=== PATIENT | female | born 1990 | race Caucasian/White ===

== ENCOUNTER 2025-04-05 09:54 | Emergency (ER) | payer OTHER ==
[~2025-04-05] VITALS: Ht 170.2 cm; Wt 83.6 kg
--- NOTE | 2025-04-05 10:05 | Physician Documentation ---
History of Present Illness ~ Chief Complaint: Flank Pain Stated Complaint: BACK/ABD PAIN Time Seen by MD: 10:05 HPI 34-year-old female who presents to the emergency department for sudden onset left flank pain radiating into the abdomen. She endorses nausea, denies chills or fever. Notes a history of kidney stones in the past. Denies chance of as she has had a tubal ligation. No recent CT scans has been done. Medication Reconciliation Allergies: Uncoded Allergies: Z-PACK (Allergy, Unknown, 04/05/25) Scheduled Tamsulosin Hcl* (Flomax*), 1 CAP PO qhs Scheduled PRN Hydrocodone Bit/Acetaminophen (Hydrocodon-Acetaminophn 10-325 tablet), 1 TAB PO QID PRN PRN for pain Ondansetron 8mg ODT (Ondansetron Odt), 1 TAB PO TID PRN for nausea/vomiting Review of Systems ROS As stated above in the HPI, otherwise all systems are reviewed and negative. Physical Exam Vital Signs: Temperature: 97.8, Source: Temporal, Heart Rate: 60, Respiratory Rate: 22, BP: 154/115, Pulse Oximetry: 100, Weight: 83.600 Oxygen Flow Rate: 0 Physical Exam General: Alert, acutely distressed in obvious pain upon presentation. Neck: Full range of motion. Respiratory: Lungs clear, no respiratory distress. Chest: No accessory muscle use. Cardiovascular: Regular rate and rhythm, no murmurs. Gastrointestinal: Soft, mildly TTP left abd, nondistended. Bowels sounds present. Extremities: Normal range of motion, no deformity. Neurologic: Oriented x4. Psychiatric: Normal mood and affect. Skin: Normal color, warm and dry. No edema, no ecchymosis. Progress Results/Orders Results/Orders Orders - LC MASSEY RACEHORSE TRAINER Ct Abdomen Pelvis (04/05/25 10:02) Saline Lock (04/05/25 10:03) Completed Orders - LC MASSEY RACEH[employer]SE TRAINER Ct Abdomen Pelvis (04/05/25 10:02) Ketorolac Trometh 30mg/Ml Vial (Toradol (04/05/25 10:05) Morphine 4mg/Ml Inj. (Morphine Inj.) (04/05/25 10:05) Normal Saline 1000ml (0.9% Sodium Chlori (04/05/25 10:05) Ondansetron Inj. (Zofran 4mg/2ml Vial) (04/05/25 10:10) Ondansetron Inj. (Zofran 4mg/2ml Vial) (04/05/25 11:10) Ondansetron Inj. (Zofran 4mg/2ml Vial) (04/05/25 13:05) Normal Saline 1000ml (0.9% Sodium Chlori (04/05/25 13:05) Morphine 4mg/Ml Inj. (Morphine Inj.) (04/05/25 13:55) Medications Received in ER Medications (Trade) Dose Ordered Sig/Elisha Route PRN Reason Start Time Stop Time Status Last Admin Dose Admin (Toradol inj. 30mg/ml) 30 mg ONCE ONCE IV 04/05/25 10:05 04/05/25 10:06 DC 04/05/25 10:38 30 MG (morphine inj.) 4 mg ONCE ONCE IV 04/05/25 10:05 04/05/25 10:06 DC 04/05/25 10:38 4 MG (0.9% sodium chloride (NS) 1000ml IV soln) 1,000 ml ONCE ONCE IVB 04/05/25 10:05 04/05/25 10:06 DC 04/05/25 10:43 1,000 ML (Zofran 4mg/2ml vial) 4 mg ONCE ONCE IV 04/05/25 10:10 04/05/25 10:11 DC 04/05/25 10:44 4 MG (Zofran 4mg/2ml vial) 4 mg ONCE ONCE IV 04/05/25 11:10 04/05/25 11:11 DC 04/05/25 11:15 4 MG (Zofran 4mg/2ml vial) 4 mg ONCE ONCE IV 04/05/25 13:05 04/05/25 13:06 DC 04/05/25 13:09 4 MG Sodium Chloride 1,000 ml @ 1,000 mls/hr ONCE ONCE IV 04/05/25 13:05 04/05/25 14:04 DC 04/05/25 13:09 1,000 MLS/HR (morphine inj.) 4 mg ONCE ONCE IV 04/05/25 13:55 04/05/25 13:56 DC 04/05/25 13:57 4 MG Vital Signs 04/05/25 04/05/25 04/05/25 04/05/25 09:58 10:34 10:38 10:38 Temp 97.8 Pulse 60 Resp 22 16 16 16 B/P (MAP) 154/115 Pulse Ox 100 O2 Flow Rate 0 04/05/25 04/05/25 04/05/25 11:17 12:18 13:57 Temp 97.8 97.8 Pulse 56 58 Resp 16 14 14 B/P (MAP) 140/81 (100) 129/79 (96) Pulse Ox 98 98 O2 Flow Rate 0 0 Laboratory Tests Test 04/05/25 10:32 04/05/25 10:53 White Blood Count 11.6 H Red Blood Count 4.98 Hemoglobin 14.1 Hematocrit 42.3 Mean Corpuscular Volume 84.8 Mean Corpuscular Hemoglobin 28.3 Mean Corpuscular Hemoglobin Concent 33.3 Red Cell Distribution Width 13.5 Platelet Count 268 Mean Platelet Volume 7.5 Neutrophils (%) (Auto) 87.0 H Lymphocytes (%) (Auto) 9.4 L Monocytes (%) (Auto) 3.3 Eosinophils (%) (Auto) 0 Basophils (%) (Auto) 0.3 Neutrophils # (Auto) 10.1 H Lymphocytes # (Auto) 1.1 Monocytes # (Auto) 0.4 Eosinophils # (Auto) 0.0 Basophils # (Auto) 0.0 CBC Comment Sodium Level 136 Potassium Level 4.8 Chloride Level 103 Carbon Dioxide Level 25.2 Anion Gap 8 Blood Urea Nitrogen 17 Creatinine 1.24 H Estimated GFR/1.73 m2 49 BUN/Creatinine Ratio 13.7 Glucose Level 134 H Calcium Level 9.3 Total Bilirubin 0.5 Aspartate Amino Transf (AST/SGOT) 14 Alanine Aminotransferase (ALT/SGPT) 26 Alkaline Phosphatase 65 Total Protein 8.1 Albumin 4.2 Globulin 3.9 Albumin/Globulin Ratio 1.1 Lipase 37 Chemistry Comments Urine Specimen Description Cln catch midstream Urine Color Yellow Urine Clarity Clear Urine pH 8.5 Urine Specific [place] 1.020 Urine Protein Trace Urine Glucose (UA) Negative Urine Ketones 40 H Urine Occult Blood Negative Urine Nitrite Negative Urine Bilirubin Negative Urine Urobilinogen 0.2 Urine Leukocyte Esterase Negative Urine RBC 0-2 Urine WBC 0-4 Urine Squamous Epithelial Cells Few Urine Bacteria 1+ Urine Mucus None seen Urine Culture Indicated Not ind Volume Urine Centrifuged 10 ml Urine HCG, Qualitative Negative Urine Comment EKG/XRAY/CT/US/VASC/MRI CT : Impression [facility] [address], [place], [facility] [id number] CAT SCAN Patient: REED CONN Medical Record: [id number] [facility] : 1990, Age: 34 Sex: Female Location: ER Patient Status: REG ER Service Date/Time: 04/05/251001 Ordering Physician: LC MASSEY [employer] TRAINER Exam: CT ABDOMEN PELVIS CT CT ABDOMEN PELVIS INDICATION: left flank pain EXAM DATE: 04/05/2025 12:06 PM COMPARISON: None RADIATION DOSE: CTDIvol: 22 mGy, DLP: 1166 mGy*cm PROCEDURE: Helical CT images were obtained of the abdomen and pelvis without IV contrast Sagittal and coronal reconstructions are provided. ORAL CONTRAST: None. ADDITIONAL IMAGES / REFORMATS: None All CT scans at this medical facility are performed using dose modulation techniques as appropriate to a performed exam including the following: Automated exposure control was utilized; adjustment of the MA and/or KV according to patient size; and use of iterative reconstruction technique. FINDINGS: LUNG BASE: Normal. LIVER: Normal. GALLBLADDER AND BILIARY TREE: No calcified gallstones. Normal caliber wall. No intra- or extrahepatic biliary ductal dilation. PANCREAS: Normal. SPLEEN: Normal. BOWEL: Moderate colonic diverticulosis. Normal appendix. ADRENALS: Normal. KIDNEYS AND URETER: 2 mm distal left ureter kidney stone with mild left hydronephrosis and perinephric fat stranding. Additional nonobstructive right kidney stone is seen. BLADDER: Normal. REPRODUCTIVE ORGANS: Normal. LYMPH NODES:No lymphadenopathy. PERITONEUM: No ascites or free air. No other fluid collection. VESSELS: Normal. RETROPERITONEUM: Normal. ABDOMINAL WALL: Normal. BONES: Normal. IMPRESSION: 2 mm distal left ureter kidney stone with mild left hydronephrosis and perinephric fat stranding. Additional nonobstructive right kidney stone is seen. Electronically Signed by:CHINMAY LARA MD Date & Time: 04/05/25 1421 Dictated by: CHINMAY LARA MD Dictation date and time: 04/05/25 1200 Primary Care Provider: NO PRIMARY CARE PROVIDER cc: LC MASSEY [employer] TRAINER ~ Medical Decision Making Additional Comment This is a 34-year-old female with a remote history of kidney stones approximately 10 years ago. She presented to the emergency department today due to sudden onset left flank pain with radiation to the left abdomen. She was found to have a 2 mm left distal ureteral stone on CT scan. There was evidence of stranding, but no signs of infection to include fever or significant leukocytosis. Urinalysis with no signs of infection, but was but positive for ketones. Labs otherwise remarkable for evidence of presumed OSWALD and this 34-year-old female who denies history of chronic kidney disease. She was hy drated with 2 L of normal saline. She was medicated for nausea and pain to good effect. She will go home with hydrocodone, Flomax, ondansetron. She is to follow up with her primary care provider soon, return if worse. The patient and her mother, who accompanies her, were comfortable with this plan. Plan of care discussed with NIKUNJ Rome who affirmed the plan. Departure Time of Disposition: 14:57 Disposition: 01 HOME / SELF CARE / HOMELESS Impression: Primary Impression: Ureteral stone with hydronephrosis Condition: Stable Discharge Instructions: Kidney Stones Additional Instructions: Take the pain meds and nausea meds as needed. Take the flomax at bedtime for up to a week or until the stone is passed. No NSAIDs for now. OK to use plain acetaminophen for mild pain but no Ibuprofen, Aleve, Naproxen, Motrin until you get labs rechecked by your primary care. (kidney labs need to be rechecked) And, request a referral to urology Drink plenty of fluids. RETURN IF WORSE: FEVER, PAIN, or any other signs of worsening condition. Labs in ER showed the following abnormals: white blood cell count mildly elevated at 11.6, Creatinine mildly elevated at 1.24 with eGFR 49. Urine normal other than some ketones. (likely due to dehydration) See CT scan results below, take to primary care followup: [facility] [address] [facility], [place], [facility] [id number] CAT SCAN Patient: REED CONN Medical Record: [id number] [facility] : 1990, Age: 34 Sex: Female Location: ER Patient Status: [facility] ER Service Date/Time: 04/05/251001 Ordering Physician: LC MASSEY NP Exam: CT ABDOMEN PELVIS CT CT ABDOMEN PELVIS INDICATION: left flank pain EXAM DATE: 04/05/2025 12:06 PM COMPARISON: None RADIATION DOSE: CTDIvol: 22 mGy, DLP: 1166 mGy*cm PROCEDURE: Helical CT images were obtained of the abdomen and pelvis without IV contrast Sagittal and coronal reconstructions are provided. ORAL CONTRAST: None. ADDITIONAL IMAGES / REFORMATS: None All CT scans at this medical facility are performed using dose modulation techniques as appropriate to a performed exam including the following: Automated exposure control was utilized; adjustment of the MA and/or KV according to patient size; and use of iterative reconstruction technique. FINDINGS: LUNG BASE: Normal. LIVER: Normal. GALLBLADDER AND BILIARY TREE: No calcified gallstones. Normal caliber wall. No intra- or extrahepatic biliary ductal dilation. PANCREAS: Normal. SPLEEN: Normal. BOWEL: Moderate colonic diverticulosis. Normal appendix. ADRENALS: Normal. KIDNEYS AND URETER: 2 mm distal left ureter kidney stone with mild left hydronephrosis and perinephric fat stranding. Additional nonobstructive right kidney stone is seen. BLADDER: Normal. REPRODUCTIVE ORGANS: Normal. LYMPH NODES:No lymphadenopathy. PERITONEUM: No ascites or free air. No other fluid collection. VESSELS: Normal. RETROPERITONEUM: Normal. ABDOMINAL WALL: Normal. BONES: Normal. IMPRESSION: 2 mm distal left ureter kidney stone with mild left hydronephrosis and perinephric fat stranding. Additional nonobstructive right kidney stone is seen. Electronically Signed by:CHINMAY LARA MD Date & Time: 04/05/25 1421 Dictated by: CHINMAY LARA MD Dictation date and time: 04/05/25 1200 Primary Care Provider: NO PRIMARY CARE PROVIDER cc: LC MASSEY NP ~ Referrals: NO PRIMARY CARE PROVIDER (PCP) Prescriptions Tamsulosin Hcl* (Flomax*) 0.4 Mg Cap.sr.24h 1 CAP PO qhs for 7 Days, #7 CAP Prov: LC MASSEY NP 04/05/25 Ondansetron 8mg ODT (Ondansetron Odt) 8 Mg Tab.rapdis 1 TAB PO TID PRN for nausea/vomiting, #10 TAB Prov: LC MASSEY NP 04/05/25 Hydrocodone Bit/Acetaminophen (Hydrocodon-Acetaminophn 10-325 tablet) 10mg-325mg Tablet 1 TAB PO QID PRN PRN for pain for 5 Days, #20 TAB Prov: LC MASSEY NP 04/05/25 Education Educated: Patient Educated regarding: diagnosis, treatment, prognosis, need for follow up Signature Scribe Signature: x Attestation: The note accurately reflects work and decisions made by me.Lc Cuevas NP 04/05/25 15:16 LC MASSEY NP Apr 05, 2025 10:05
[2025-04-05] MEDS: morphine 4 MG/ML inj SYRINge IV ONE ×2 (10:38→13:57)
[2025-04-05] MEDS: ketorolac trometh 30MG/ML vial 30 MG/ML VIAL IV ONE (10:38)
[2025-04-05] MEDS: normal saline 1000ML IV soln IVB ONE (10:43)
[2025-04-05] MEDS: ondansetron/PF 4mg/2ml inj IV ONE ×3 (10:44→13:09)
[2025-04-05 10:51] LABS: MEAN PLATELET VOLUME 7.5 FL (7.4-10.4); RED CELL DISTRIBUTION WIDTH 13.5 % (11.5-14.5)
[2025-04-05 11:33] LABS: CREATININE 1.24 MG/DL (0.40-0.90); TOTAL CARBON DIOXIDE 25.2 MMOL/L (24-32); eCRCL 62 ML/MIN; eGFR 49 ML/MIN
[2025-04-05 11:54] LABS: LEUKOCYTE ESTERASE ,URINE NEGATIVE (Neg); NITRITES, URINE NEGATIVE (Neg); OCCULT BLOOD,URINE NEGATIVE (Neg); URINE HCG NEGATIVE (NEG)
[2025-04-05 11:56] LABS: UA COLLECTION TYPE CLN CATCH MIDSTREAM
[2025-04-05 12:05] LABS: MUCUS STRANDS NONE SEEN /LPF (Neg); SQUAMOUS EPITHELIAL CELL,UR FEW /LPF (FEW)
[2025-04-05] MEDS ORDERED: morphine 4 MG/ML inj SYRINge IV ONE (12:55)
[2025-04-05] MEDS ORDERED: ondansetron/PF 4mg/2ml inj IV ONE (13:05)
[2025-04-05] MEDS: normal saline 1000ml 1,000 ML IV ONE (13:09)
--- NOTE | 2025-04-05 14:23 | RADIOLOGY REPORT ---
CT CT ABDOMEN PELVIS INDICATION: left flank pain EXAM DATE: 04/05/2025 12:06 PM COMPARISON: None RADIATION DOSE: CTDIvol: 22 mGy, DLP: 1166 mGy*cm PROCEDURE: Helical CT images were obtained of the abdomen and pelvis without IV contrast Sagittal and coronal reconstructions are provided. ORAL CONTRAST: None. ADDITIONAL IMAGES / REFORMATS: None All C T scans at this medical facility are performed using dose modulation techniques as appropriate to a p erformed exam including the following: Automated exposure control was utilized; adjustment of the MA and/or KV according to patient size; and use of iterative reconstruction technique. FINDINGS: LUNG BASE: Normal. LIVER: Normal. GALLBLADDER AND BILIARY TREE: No calcified gallstones. Normal caliber wall. No intra- or extrahepatic biliary ductal dilation. PANCREAS: Normal. SPLEEN: Normal. BOWEL: Moderate colonic diverticulosis. Normal appendix. ADRENALS: Normal. KIDNEYS AND URETER: 2 mm distal left ureter kidney stone with mild left hydronephrosis and perinephri c fat stranding. Additional nonobstructive right kidney stone is seen. BLADDER: Normal. REPRODUCTIVE ORGANS: Normal. LYMPH NODES:No lymphadenopathy. PERITONEUM: No ascites or free air. No other fluid collection. VESSELS: Normal. RETROPERITONEUM: Normal. ABDOMINAL WALL: Normal. BONES: Normal. IMPRESSION: 2 mm distal left ureter kidney stone with mild left hydronephrosis and perinephric fat stranding. Add itional nonobstructive right kidney stone is seen.
[2025-04-05] MEDS ORDERED: TAMS-55 PO (15:00)
[2025-04-05] MEDS ORDERED: ONDA-245 PO (15:00)
[2025-04-05] MEDS ORDERED: HYDR-3972 PO (15:00)
[2025-04-05 15:22] VITALS: BP 135/84; PULSE 58; RESP 16; TEMP 97.8; O2SAT 99
== END 2025-04-05 15:25 | disposition home or self-care (01) ==
LOC: ER 09:56
DX: N13.2 Hydronephrosis with renal and ureteral calculous obstruction (principal); R11.0 Nausea
CPT/HCPCS: 36415; 74176; 80053; 81001; 81025; 83690; 85025; 96361; 96374; 96375; 96376; 99285; J1885; J2270; J2405; J7030